=== PATIENT | female | born 1950 | race Caucasian/White ===

== ENCOUNTER 2016-10-11 13:03 | Inpatient (IN) | payer OTHER, MEDICARE ==
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
[2016-10-27] MEDS ORDERED: GABAPENTIN 600 MG TABLET PO ONE (05:30)
[2016-10-27] MEDS ORDERED: CLONIDINE HCL 0.1 MG/24 HR (7 DAY PATCH) TD SCH (05:30)
[2016-10-27] MEDS ORDERED: OXYCODONE HCL 10 MG TAB.SR PO ONE ×2 (05:30→06:26)
[2016-10-27] MEDS ORDERED: CEFAZOLIN SODIUM 2 GRAM PREMIX 100 ML IV PRN (05:30)
[2016-10-27] MEDS ORDERED: ONDANSETRON 4 MG/2ML 2 ML VIAL IV ONE (05:30)
[2016-10-27] MEDS ORDERED: CELECOXIB 200 MG CAPSULE PO ONE (05:30)
[2016-10-27] MEDS ORDERED: FAMOTIDINE 20 MG TABLET PO ONE (05:30)
[2016-10-27] MEDS ORDERED: TRAMADOL HCL 50 MG TABLET PO ONE (05:30)
[2016-10-27] MEDS ORDERED: LACTATED RINGERS 1,000 ML ONE (05:37)
[2016-10-27] MEDS ORDERED: IV START KIT ONE (05:37)
[2016-10-27] MEDS ORDERED: TRAMADOL HCL 50 MG TABLET ONE (06:26)
[2016-10-27] MEDS ORDERED: FAMOTIDINE 20 MG TABLET ONE (06:27)
[2016-10-27] MEDS ORDERED: ONDANSETRON 4 MG/2ML 2 ML VIAL ONE ×2 (06:27→09:36)
[2016-10-27] MEDS ORDERED: GABAPENTIN 600 MG TABLET ONE (06:27)
[2016-10-27] MEDS ORDERED: CELECOXIB 200 MG CAPSULE ONE (06:27)
[2016-10-27] MEDS ORDERED: CLONIDINE HCL 0.1 MG/24 HR (7 DAY PATCH) TD ONE (06:27)
[2016-10-27] MEDS ORDERED: MIDAZOLAM HCL 5 MG/5 ML VIAL ONE (06:39)
[2016-10-27] MEDS ORDERED: FENTANYL 5 ML ONE (06:39)
[2016-10-27] MEDS ORDERED: ROPIVACAINE 0.5% 30 ML VIAL ONE (06:58)
[2016-10-27] MEDS ORDERED: NERVE BLOCK PROCEDURAL TRAY 1 EACH ONE (06:58)
[2016-10-27] MEDS ORDERED: FLUSH IF PRN (07:40)
[2016-10-27] MEDS ORDERED: EPINEPHRINE IF PRN (07:40)
[2016-10-27] MEDS ORDERED: SODIUM CHLORIDE 0.9% IF PRN (07:40)
[2016-10-27] MEDS ORDERED: TRANEXAMIC ACID 1,000 MG in SODIUM CHLORIDE 0.9% 100 ML IV PRN (07:40)
[2016-10-27] MEDS ORDERED: BUPIVACAINE 0.25% (MDV) 20 ML in SODIUM CHLORIDE 0.9% FLUSH 20 ML IF PRN (07:40)
[2016-10-27] MEDS ORDERED: BUPIVACAINE 0.25% IF PRN (07:40)
[2016-10-27] MEDS ORDERED: POLYMYXIN B SULFATE 500,000 UNITS, BACITRACIN 25,000 UNITS in SODIUM CHLORIDE 3 L IRRIG... IR PRN (07:40)
[2016-10-27] MEDS ORDERED: SPINAL PROCEDURAL TRAY 1 EACH ONE (07:59)
[2016-10-27] MEDS ORDERED: DEXAMETHASONE SOD PHOS 4 MG/1 ML VIAL ONE ×2 (08:32)
[2016-10-27] MEDS ORDERED: ONDANSETRON 4 MG/2ML 2 ML VIAL IV PRN (09:09)
[2016-10-27] MEDS ORDERED: ATROPINE SULFATE 0.4 MG/1 ML VIAL IV PRN (09:09)
[2016-10-27] MEDS ORDERED: FENTANYL 100 MCG/2 ML VIAL IV PRN (09:09)
[2016-10-27] MEDS ORDERED: PROMETHAZINE HCL 25 MG/ML VIAL IM PRN ×2 (09:09→12:21)
[2016-10-27] MEDS ORDERED: NALOXONE HCL 0.4 MG/ML VIAL IV PRN (09:09)
[2016-10-27] MEDS ORDERED: LACTATED RINGERS 1,000 ML IV SCH (09:15)
[2016-10-27] MEDS ORDERED: SODIUM CHLORIDE 0.9% FLUSH 0 ML ONE ×3 (09:43→12:29)
[2016-10-27] MEDS ORDERED: PHENYLEPHRINE 10 MG/1 ML (1%) VIAL ONE (09:43)
[2016-10-27] MEDS ORDERED: ON-Q PUMP/ROPIVACAINE 0.2% 0 ML ONE (10:15)
--- NOTE | 2016-10-27 10:15 | PCMBPN ---
Brief Post Op Note: Date of Procedure: 10/27/16 Start Time: 0745 Preoperative Diagnosis: 1. Right Knee Osteoarthritis Postoperative Diagnosis: 1. Same Procedure: Right TKA Surgeon: West Ndiaye MD Assist:VICTORINA Tapia Anesthesia: Brennan Garcia CRNA Findings: See above Condition: Stable Complications: None IV Fluids: 2200 mLs of LR Urine Output: 125 mLs Estimated Blood Loss: 50 mLs Tourniquet Time: 28 minutes at 250mmHg Specimens: N/A Implants: Stoddard&Nephew: Size 5 PS Femoral Component Legion Oxinum, Size 3 Genesis2 Non-porous Tibial Plate, 9mm Legion PS XLPE Highflexion Articular Insert, 32mm Gensis2 Patella component. Drains: [N/A]
[2016-10-27] MEDS ORDERED: ON-Q PUMP/ROPIVACAINE 0.2% 450 ML ONE (10:33)
[2016-10-27] MEDS ORDERED: HYDROMORPHONE HCL 1 MG/ML SYRINGE ONE (10:41)
[2016-10-27] MEDS: HYDROMORPHONE HCL 1 MG/ML SYRINGE IV PRN ×2 (10:43→10:51)
[2016-10-27] MEDS: ON-Q PUMP/ROPIVACAINE 0.2% 450 ML in PREMIX BAG 1 EACH NB PRN (10:44)
--- NOTE | 2016-10-27 11:24 | RAD ---
Exam: Two-view right knee COMPARISON: 06/30/2016 INDICATION: Postop right knee FINDINGS: AP and crosstable lateral views of the right knee were obtained. There has been right total knee arthroplasty. Alignment is normal. No pericomponent fracture is identified. Skin renée are present. IMPRESSION: Expected postoperative appearance following right total knee arthroplasty.
[2016-10-27] MEDS ORDERED: KETOROLAC TROMETHAMINE 15 MG/ML VIAL IV PRN (11:29)
[2016-10-27] MEDS ORDERED: TRAZODONE HCL 50 MG TABLET PO PRN (11:29)
[2016-10-27] MEDS ORDERED: HYDROMORPHONE HCL 0.5 MG/0.5 ML SYRINGE IV PRN (11:29)
[2016-10-27] MEDS ORDERED: NALOXONE HCL 0.4 MG/ML VIAL ONE (11:59)
[2016-10-27] MEDS ORDERED: PUMP TUBING ONE (12:04)
[2016-10-27] MEDS: D5 1/2NS with 20 mEq KCL 1,000 ML IV SCH ×2 (12:06→20:49)
[2016-10-27] MEDS ORDERED: MEPERIDINE 50 MG/ML SYRINGE IM PRN (12:21)
[2016-10-27] MEDS ORDERED: METOCLOPRAMIDE HCL 5 MG/ML 2ML VIAL ONE ×2 (12:29)
[2016-10-27] MEDS ORDERED: EPHEDRINE SULFATE UD SYR 25 MG 25 MG/5 ML SYRINGE IV ONE (12:36)
[2016-10-27] MEDS ORDERED: PROPOFOL 0 ML IV ONE (12:48)
[2016-10-27] MEDS ORDERED: LIDOCAINE 2% (PRES FREE) 5 ML VIAL ONE ×2 (13:32)
[2016-10-27] MEDS ORDERED: EPINEPHRINE 1 MG/ML 1ML AMP ONE (13:32)
[2016-10-27] MEDS: ACETAMINOPHEN 500 MG TABLET PO SCH ×2 (14:44→18:40)
[2016-10-27] MEDS: CEFAZOLIN SODIUM 2 GRAM DUPLEX 2 G in Premix (D5W) 50 ml 1 EACH IV SCH (17:30)
[2016-10-27 18:39] VITALS: BMI 26.9
[2016-10-27] MEDS: OXYCODONE HCL 10 MG TAB.SR PO SCH (20:49)
[2016-10-27] MEDS: DOCUSATE SODIUM 100 MG CAPSULE PO SCH (20:49)
[2016-10-27] MEDS: ASCORBIC ACID 500 MG TABLET PO SCH (20:50)
[2016-10-28] MEDS: ACETAMINOPHEN 500 MG TABLET PO SCH ×4 (00:33→17:23)
[2016-10-28] MEDS: CEFAZOLIN SODIUM 2 GRAM DUPLEX 2 G in Premix (D5W) 50 ml 1 EACH IV SCH (00:33)
[2016-10-28] MEDS: D5 1/2NS with 20 mEq KCL 1,000 ML IV SCH ×3 (05:11→22:51)
[2016-10-28] MEDS ORDERED: REMOVE PATCH 1 EACH UNIT TD SCH (05:30)
[2016-10-28 07:10] LABS: HEMATOCRIT 31.7 % (37.0-47.0); MEAN CELL VOLUME 88.5 fl (81.0-99.0); MEAN CORPUSCULAR HEMOGLOBIN 27.9 pg (27.0-31.0); MEAN CORPUSCULAR HGB CONC 31.5 g/dl (33.0-37.0); RED CELL DISTRIBUTION WIDTH 13.2 % (11.5-14.5)
[2016-10-28] MEDS: LEVOTHYROXINE SODIUM 88 MCG TABLET PO SCH (07:19)
[2016-10-28 07:45] LABS: CALCIUM 7.9 mg/dL (8.6-10.3)
--- NOTE | 2016-10-28 08:21 | PDOC43 ---
- Subjective Findings: POD1 Right TKA Subjective: Reports Pain Tolerable, Denies Chest Pain, Denies Shortness of Breath - Objective Vital Signs Temperature 98.0 F 10/28/16 08:08 Pulse Rate 70 10/28/16 08:08 Respiratory Rate 20 10/28/16 08:08 Blood Pressure 108/66 10/28/16 08:08 O2 Saturation by Pulse Oximetry 94 10/28/16 08:08 Oxygen Delivery Method Room Air Oxygen Flow Rate 0 Laboratory 10/28/16 06:10 10/28/16 06:10 10/28/16 06:10 RBC 3.58 L MCHC 31.5 L Estimated GFR 100 H Calcium 7.9 L Active Medication Orders Category Date Time Status Acetaminophen [Tylenol] Med 10/27/16 11:29 Active 1,000 mg PO Q6H Ascorbic Acid [Vitamin C] Med 10/27/16 21:00 Active 500 mg PO BID Aspirin (Enteric Coated) [Ecotrin] Med 10/28/16 09:00 Active 325 mg PO DAILY Bisacodyl [Dulcolax] Med 10/30/16 10:16 Active 10 mg UT DAILY PRN Calcium Carbonate [Tums] Med 10/27/16 11:29 Active 1,000 - 2,000 mg PO Q2H PRN Calcium Citrate Med 10/28/16 09:00 Active 1,250 mg PO DAILY D5 1/2NS with 20 mEq KCL [D51/2NS with 20 mEq KCL] 1, Med 10/27/16 11:29 Active 000 ml IV 125 mls/hr Docusate Sodium [Colace] Med 10/27/16 21:00 Active 100 mg PO BID Hydromorphone HCl [Dilaudid] Med 10/27/16 11:29 Active 0.5 mg IV Q1H PRN Hydroxyzine Pamoate [Vistaril] Med 10/27/16 11:29 Active 25 - 50 mg PO Q4H PRN Ketorolac Tromethamine [Toradol] Med 10/27/16 11:29 Active 15 mg IV Q6H PRN Levothyroxine Sodium [Levothroid] Med 10/28/16 07:30 Active 88 mcg PO QAMAC Magnesium Hydroxide [Milk of Magnesia] Med 10/28/16 10:16 Active 30 ml PO DAILY PRN Meperidine [Demerol] Med 10/27/16 12:21 Active 50 mg IM Q2H PRN Multivitamins [One-A-Day] Med 10/28/16 09:00 Active 1 tab PO DAILY On-Q Pump/Ropivacaine 0.2% 450 ml Med 10/27/16 09:09 Active Premix Bag [Premix Fluid] 1 each NB Q50H Ondansetron 4 mg/2ml Vial [Zofran] Med 10/27/16 11:29 Active 4 - 6 mg IV Q6H PRN Oxycodone HCl [Roxicodone] Med 10/27/16 11:29 Active 5 - 10 mg PO Q4H PRN Oxycodone Sr [Oxycontin] Med 10/27/16 21:00 Active 10 mg PO Q12HR Promethazine HCl [Phenergan] Med 10/27/16 12:21 Active 25 mg IM Q4H PRN Raloxifene HCl [Evista] Med 10/28/16 09:00 Active 60 mg PO DAILY Remove Patch Med 10/28/16 10:16 Once 1 each TD X1 ONE Sodium Chloride 0.9% Flush [Normal Saline 10ml Flush] Med 10/27/16 11:29 Active 10 - 50 ml IV PRN PRN Sodium Chloride 0.9% Flush [Normal Saline 10ml Flush] Med 10/27/16 17:00 Active 10 ml IV Q8HR Tramadol HCl [Ultram] Med 10/27/16 11:29 Active 50 mg PO Q6H PRN Trazodone HCl [Desyrel] Med 10/27/16 11:29 Active 25 mg PO BEDTIME PRN Vitamin D Med 10/28/16 09:00 Active 400 interunits PO DAILY Intake and Output 10/26/16 10/27/16 10/28/16 23:59 23:59 23:59 Intake Total 3820 1389 Output Total 1550 Balance 2270 1389 General: Afebrile Lungs: Normal Air Movement Skin: Normal Color, Warm, Dry - Right Lower Extremity Incision: Dressing Clean/Dry/Intact, No Dressing Saturated Motor: Extensor Hallucis Longus: 5/5, Tibialis Anterior: 5/5, Gastrocnemius: 5/5 , Peroneals: 5/5 Gross Sensation to Light Touch: Present: Deep Peroneal Nerve, Superficial Peroneal Nerve - Problems (1) Status post total knee replacement, right Status: Acute - Additional Comments POD1 Right TKA. 1. Physical Therapy: WBAT with FWW, Mobilization 2. Pain Control: Multimodal pain control as needed. 3. DVT Prophylaxis: ASA 325mg, mobilization. 4. Disposition: Plan for discharge home Tuesday. 5. Medical Issues: No new medical problems.
[2016-10-28] MEDS ORDERED: CALCIUM CITRATE 250 MG TABLET PO SCH (09:00)
[2016-10-28] MEDS: RALOXIFENE HCL 60 MG TABLET PO SCH (09:32)
[2016-10-28] MEDS: CALCIUM CITRATE 250 MG TABLET PO SCH (09:32)
[2016-10-28] MEDS: ASCORBIC ACID 500 MG TABLET PO SCH (09:32)
[2016-10-28] MEDS: DOCUSATE SODIUM 100 MG CAPSULE PO SCH (09:32)
[2016-10-28] MEDS: ASPIRIN (ENTERIC COATED) 325 MG TABLET.EC PO SCH (09:32)
[2016-10-28] MEDS: MULTIVITAMINS 1 TAB TABLET PO SCH (09:32)
[2016-10-28] MEDS: VITAMIN D PO SCH (09:32)
[2016-10-28] MEDS: OXYCODONE HCL 10 MG TAB.SR PO SCH (09:32)
[2016-10-28] MEDS ORDERED: MAGNESIUM HYDROXIDE 30 ML UDCUP PO PRN (10:16)
[2016-10-28] MEDS ORDERED: REMOVE PATCH 1 EACH UNIT TD ONE (10:16)
[2016-10-28] MEDS: TRAMADOL HCL 50 MG TABLET PO PRN (11:32)
[2016-10-28] MEDS: ON-Q PUMP/ROPIVACAINE 0.2% 450 ML in PREMIX BAG 1 EACH NB PRN ×3 (12:00→22:00)
[2016-10-28] MEDS ORDERED: PANTOPRAZOLE 40 MG TABLET DR PO ONE (15:42)
[2016-10-28] MEDS ORDERED: PANTOPRAZOLE 40 MG TABLET DR PO PRN (15:43)
[2016-10-28] MEDS: CALCIUM CARBONATE 500 MG TAB.CHEW PO PRN (17:24)
[2016-10-28] MEDS: OXYCODONE HCL 5 MG TABLET PO PRN (19:42)
[2016-10-28] MEDS: ONDANSETRON 4 MG/2ML 2 ML VIAL IV PRN (21:36)
[2016-10-29] MEDS: DOCUSATE SODIUM 100 MG CAPSULE PO SCH ×2 (00:07→10:30)
[2016-10-29] MEDS: CALCIUM CARBONATE 500 MG TAB.CHEW PO PRN ×2 (00:08→11:58)
[2016-10-29] MEDS: HYDROXYZINE PAMOATE 25 MG CAPSULE PO PRN ×2 (00:08→07:20)
[2016-10-29] MEDS: OXYCODONE HCL 10 MG TAB.SR PO SCH ×2 (00:08→10:31)
[2016-10-29] MEDS: ACETAMINOPHEN 500 MG TABLET PO SCH ×5 (00:14→16:35)
[2016-10-29] MEDS: ASCORBIC ACID 500 MG TABLET PO SCH ×2 (00:14→10:31)
[2016-10-29] MEDS: OXYCODONE HCL 5 MG TABLET PO PRN ×3 (03:20→16:52)
[2016-10-29] MEDS: D5 1/2NS with 20 mEq KCL 1,000 ML IV SCH ×2 (05:29→11:38)
[2016-10-29] MEDS: TRAMADOL HCL 50 MG TABLET PO PRN ×2 (05:55→14:55)
[2016-10-29 06:22] LABS: HEMATOCRIT 30.1 % (37.0-47.0); HEMOGLOBIN 9.6 gm/l (12.0-16.0)
[2016-10-29] MEDS: LEVOTHYROXINE SODIUM 88 MCG TABLET PO SCH (07:14)
[2016-10-29] MEDS: ONDANSETRON 4 MG/2ML 2 ML VIAL IV PRN (07:39)
--- NOTE | 2016-10-29 08:09 | OP ---
Laura DAVID : 1950 [id number] DATE OF SURGERY: October 27, 2016 PREOPERATIVE DIAGNOSIS: Right knee osteoarthritis. POSTOPERATIVE DIAGNOSIS: Right knee osteoarthritis. PROCEDURE PERFORMED: RIGHT TOTAL KNEE ARTHROPLASTY. SURGEON: West Ndiaye M.D. SEED AND FERTILIZER SPECIALIST: Flynn Stoddard P.A.-C. SPECIMENS: No material was sent to the laboratory. ESTIMATED BLOOD LOSS: 50 mL. INTRAVENOUS FLUIDS: 2200 mL of crystalloid. URINE OUTPUT: 125 mL. TOURNIQUET TIME: 28 minutes at 300 mmHg. IMPLANTS: Stoddard and Nephew Legion size 5 posterior stabilized femur, size 3 tibial baseplate, 9 mm insert and a 32 mm patella. DRAINS: No drains. INDICATIONS: This is a 66-year-old female with history and physical exam and radiographic findings consistent with right knee osteoarthritis. The patient has undergone a course of nonoperative measures without adequate relief of their symptoms. They desire definitive management in the form of a total knee arthroplasty. Risks, benefits and alternatives were discussed at length with the patient and they have elected to proceed. Preoperative clearances were performed and the patient was scheduled for surgery at the first available convenience. DESCRIPTION OF PROCEDURE: The patient was identified in the preoperative holding area where they were marked with indelible marker by the operating surgeon. The patient underwent ultrasound guided adductor canal block by the anesthesia provider. Patient was then taken to the operating room where they underwent a spinal anesthetic and was positioned supine on the operating room table. All bony prominences were padded and a well padded pre-calibrated nonsterile tourniquet was placed on the right upper thigh. Patient received perioperative antibiotics. The patient was prepped and draped in the usual sterile fashion for surgery. An operative time out was performed and confirmed by all members of the operative team. The leg was elevated and exsanguinated using an Esmarch bandage and the tourniquet was inflated at 300 mmHg. A standard anterior approach to the knee was utilized. Dissection was carried down to the fascia overlying the quadriceps and patellar tendons. A medial peripatellar arthrotomy was created. The infrapatellar and suprapatellar fat pads were excised along with medial and lateral menisci and the ACL and PCL. At this point the tourniquet was deflated. Retractors were placed to protect the collateral ligaments and the patella was slid laterally. The Visionaire guide for the femur was brought onto the field and pinned in place. This was exchanged for our distal femoral cut block. We confirmed our resection levels and then made the resection with an oscillating saw. The knee was hyperflexed and the Tarlow retractor was placed to deliver the tibia from under the femur. The Visionaire guide for the tibia was placed. Alignment was double checked with a set of drop rods. The guide was pinned in place and then exchanged for the proximal tibial cut guide. The resection level was again confirmed and the proximal tibial resection was made with an oscillating saw and completed with an osteotome and the proximal tibial resection piece was excised from the knee. At this point the retractors were removed and the knee was taken into extension and our extension block was checked and found to be satisfactory with a 9 mm nani. We returned our attention to the femur, pinning the 4-in-[address] using the previously drilled pins from the Visionaire guide. We double checked our alignment here as well as our flexion space and we were satisfied with the position of the block. Anterior, posterior and chamfer cuts were made and all bony pieces were excised. The knee was taken into hyperflexion and posterior osteophytes were removed using an osteotome and a curette. Finally, the tibia was sized with a base plate, drilled and punched and then a trial tibia was placed. The box cut guide for the femur was pinned in place and our box cut for the posterior stabilized femoral component was made and then a trial femur was placed. The trial 6 mm insert was placed and the knee was taken through a range of motion. It was found to be stable in all planes and to have appropriate extension and flexion. The patella was everted and held with two towel clips. Its thickness was measured to 19 mm initially. It was resected back using a freehand technique to 14 mm thick and sized for a 32 mm patellar button. The knee was taken through a range of motion. The patella was found to track midline with a no hands technique. At this point all trial implants were removed from the knee. The posterior capsule was inspected and it was confirmed that there were no significant bleeders. Then knee was elevated and exsanguinated using an Esmarch bandage and the tourniquet was reinflated. Cement was mixed on the back table while we performed our first posterior capsular injection and then copiously irrigated the bony surfaces with sterile saline. Our final implants were cemented in place and all excess cement was removed from the knee. The knee was held in extension with a clamp on the patella while the cement dried. A final inspection was made of the knee after the cement was dry and the tourniquet was deflated. There were no significant bleeders and no residual cement or bony bodies within the knee. The knee was once again copiously irrigated with sterile saline and then a closure was performed using #0 Quill for the capsule, #2-0 Vicryl for the subcutaneous tissues and renée in the skin. A sterile dressing of Xeroform, fluffs, ABD's, web roll and an JOIE bandage was applied. The drapes were removed. The patient was awakened from anesthesia. Patient was then transferred to a stretcher and taken postoperatively to the post anesthesia care unit in stable condition. There were no observed intraoperative complications during this procedure. Job [id number] Cc: [place]anna Chowdhury
--- NOTE | 2016-10-29 09:05 | PDOC43 ---
- Subjective Findings: Doing OK this AM, nauseated. Pain controlled. No new complaints. Subjective: Reports Flatus, Reports Pain Tolerable, Reports Nausea, Reports Vomiting, Denies Chest Pain, Denies Shortness of Breath, Denies Fever - Objective Vital Signs Temperature 97.4 F 10/29/16 07:35 Pulse Rate 69 10/29/16 07:35 Respiratory Rate 20 10/29/16 07:58 Blood Pressure 111/60 10/29/16 07:35 O2 Saturation by Pulse Oximetry 94 10/29/16 07:35 Oxygen Delivery Method Room Air Oxygen Flow Rate 0 Laboratory 10/29/16 05:30 10/28/16 06:10 Active Medication Orders Category Date Time Status Acetaminophen [Tylenol] Med 10/27/16 11:29 Active 1,000 mg PO Q6H Ascorbic Acid [Vitamin C] Med 10/27/16 21:00 Active 500 mg PO BID Aspirin (Enteric Coated) [Ecotrin] Med 10/28/16 09:00 Active 325 mg PO DAILY Bisacodyl [Dulcolax] Med 10/30/16 10:16 Active 10 mg IA DAILY PRN Calcium Carbonate [Tums] Med 10/27/16 11:29 Active 1,000 - 2,000 mg PO Q2H PRN Calcium Citrate Med 10/28/16 09:00 Active 1,250 mg PO DAILY D5 1/2NS with 20 mEq KCL [D51/2NS with 20 mEq KCL] 1, Med 10/27/16 11:29 Active 000 ml IV 125 mls/hr Docusate Sodium [Colace] Med 10/27/16 21:00 Active 100 mg PO BID Hydromorphone HCl [Dilaudid] Med 10/27/16 11:29 Active 0.5 mg IV Q1H PRN Hydroxyzine Pamoate [Vistaril] Med 10/27/16 11:29 Active 25 - 50 mg PO Q4H PRN Levothyroxine Sodium [Levothroid] Med 10/28/16 07:30 Active 88 mcg PO QAMAC Magnesium Hydroxide [Milk of Magnesia] Med 10/28/16 10:16 Active 30 ml PO DAILY PRN Multivitamins [One-A-Day] Med 10/28/16 09:00 Active 1 tab PO DAILY On-Q Pump/Ropivacaine 0.2% 450 ml Med 10/27/16 09:09 Active Premix Bag [Premix Fluid] 1 each NB Q50H Ondansetron 4 mg/2ml Vial [Zofran] Med 10/27/16 11:29 Active 4 - 6 mg IV Q6H PRN Oxycodone HCl [Roxicodone] Med 10/27/16 11:29 Active 5 - 10 mg PO Q4H PRN Oxycodone Sr [Oxycontin] Med 10/27/16 21:00 Active 10 mg PO Q12HR Pantoprazole Sodium [Protonix] Med 10/28/16 15:43 Active 40 mg PO DAILY PRN Raloxifene HCl [Evista] Med 10/28/16 09:00 Active 60 mg PO DAILY Sodium Chloride 0.9% Flush [Normal Saline 10ml Flush] Med 10/27/16 11:29 Active 10 - 50 ml IV PRN PRN Sodium Chloride 0.9% Flush [Normal Saline 10ml Flush] Med 10/27/16 17:00 Active 10 ml IV Q8HR Tramadol HCl [Ultram] Med 10/27/16 11:29 Active 50 mg PO Q6H PRN Trazodone HCl [Desyrel] Med 10/27/16 11:29 Active 25 mg PO BEDTIME PRN Vitamin D Med 10/28/16 09:00 Active 400 interunits PO DAILY Intake and Output 10/27/16 10/28/16 10/29/16 23:59 23:59 23:59 Intake Total 3820 2469 650 Output Total 1550 750 800 Balance 2270 1719 -150 General: Afebrile, No Acute Distress HEENT: EOMI Lungs: Normal Air Movement Abdomen: Soft, No Tenderness Skin: Normal Color, Warm, Dry Neurological: Grossly Intact, Alert, Oriented x 4 - Right Lower Extremity Incision: Dressing Clean/Dry/Intact, Well Approximated, Jose Antonio Intact, No Drainage, No Erythema, No Rash, No Ecchymosis Motor: Extensor Hallucis Longus: 5/5, Tibialis Anterior: 5/5, Gastrocnemius: 5/5 , Peroneals: 5/5, Quadriceps: 4/5 Gross Sensation to Light Touch: Present: Deep Peroneal Nerve, Superficial Peroneal Nerve, Medial Plantar Nerve, Lateral Plantar Nerve, Sural Nerve, Saphenous Nerve Capillary Refill: < 3 Seconds - Problems (1) Status post total knee replacement, right Status: Acute - Additional Comments POD2 Right TKA. 1. Physical Therapy: WBAT with FWW, Mobilization 2. Pain Control: Multimodal pain control as needed. 3. DVT Prophylaxis: ASA 325mg, mobilization. 4. Disposition: Likely home today. 5. Medical Issues: Low BP this AM, will bolus 1 L NS and recheck. West Ndiaye MD
[2016-10-29] MEDS ORDERED: SODIUM CHLORIDE 0.9% 1,000 ML IV SCH (09:15)
[2016-10-29] MEDS: ON-Q PUMP/ROPIVACAINE 0.2% 450 ML in PREMIX BAG 1 EACH NB PRN (09:20)
[2016-10-29] MEDS: CALCIUM CITRATE 250 MG TABLET PO SCH (10:30)
[2016-10-29] MEDS: RALOXIFENE HCL 60 MG TABLET PO SCH (10:31)
[2016-10-29] MEDS: VITAMIN D PO SCH (10:31)
[2016-10-29] MEDS: MULTIVITAMINS 1 TAB TABLET PO SCH (10:31)
[2016-10-29] MEDS: ASPIRIN (ENTERIC COATED) 325 MG TABLET.EC PO SCH (10:31)
[2016-10-29] MEDS ORDERED: PROMETHAZINE HCL 25 MG SUP PR ONE (11:26)
[2016-10-29 15:48] VITALS: BP 128/68
--- NOTE | 2016-10-29 15:56 | PDOC5 ---
ADMIT DATE: 10/27/16 DISCHARGE DATE: 10/29/16 ADMISSION DIAGNOSES: R knee osteoarthritis PROCEDURES PERFORMED THIS HOSPITALIZATION: right total knee arthroplasty SURGEON:West Ndiaye MD CONSULTATIONS: PT/OT/Care Management BRIEF HISTORY:This is a 66 year old female patient with activity-limiting right knee osteoarthritis which has failed to respond adequately to a course of nonoperative measures. After a discussion of the risks, benefits, and alternatives of ongoing therapies, patient elected to proceed with right total knee arthroplasty. The patient underwent standard preoperative clearance and education, and presented to the hospital on the scheduled date for surgery. BRIEF HOSPITAL COURSE: Patient tolerated the procedure without complication and was admitted postoperatively for observation, pain control, and rehabilitation. Patient had an uncomplicated hospital course; see daily notes for details. On POD#2 patient met all criteria for discharge and was discharged home with family assistance. Follow-up appointments for outpatient Physical Therapy and Orthopedics were provided at the time of discharge. Patient restarted preoperative medications, and received prescriptions for postoperative pain medications, a stool softener, and DVT prophylaxis. West Ndiaye MD - Discharge Diagnosis (1) Status post total knee replacement, right Status: Acute - Discharge Plan Additional Instructions: PROCEDURE: Right total knee arthroplasty (replacement) 1.) Dressings: may remove dressings on POD#4 and shower normally, let water run over incision and pat dry, but do not submerge or scrub incision. Cover with clean dressing and then change dressing every 2 days until completely dry. 2.) Activity: may bear weight as tolerated with assistive device as needed, brace in place at all times for first 6 weeks. Outpatient PT as previously scheduled. Daily exercises as instructed by PT. 3.) Medications: a.) Oxycontin: long-acting pain medication taken morning and evening for 10 days, no refills b.) Tramadol: as-needed pain medication for mild to moderate breakthrough pain (call for refills 3-4 days before running out) c.) Oxycodone: as-needed pain medication for severe breakthrough pain (call for refills 3-4 days before running out) d.) Aspirin: blood thinner to reduce risk of clots, 325 mg taken daily for 30 days e.) Colace: stool softener to help prevent constipation, taken twice a day as long as you are on narcotics; if you have not had a bowel movement by Kamlesh , get biuv-eno-eeldihy Magnesium Citrate from [employer] or [employer], and use per instructions twice a day until constipation resolves. f.) Phenergan/Promethazine: 1 tab every 6 hours as needed for nausea 4.) Followup: November 08 at 1:00PM with my PA, Brian Stoddard at [facility]. Call our office to confirm appt time and location. 5.) Questions: call my office with any questions or concerns. Go to ED or call 911 for any acute changes in health status or emergencies. West Ndiaye MD Prescriptions: Promethazine HCl [Phenergan] 25 mg PO Q6H PRN #40 tab PRN Reason: Nausea Follow-Up: [facility] [Outside] - 11/01/16 10:00 am Flynn Stoddard PA [Physician [employer]] - 11/08/16 1:00 pm
[2016-10-30] MEDS ORDERED: BISACODYL 10 MG SUP PR PRN (10:16)
== END 2016-10-29 18:07 | disposition home or self-care (01) | DRG 470 ==
LOC: OR 10-27 05:28 → MS 10-27 11:51
PROVIDERS: ADMIT Orthopaedic Surgery; ATTEND Orthopaedic Surgery
PROC: 0SRC0J9 Replacement of Right Knee Joint with Synthetic Substitute, Cemented, Open Approach (ICD-10-PCS; principal; 2016-10-27)
DX: M17.11 Unilateral primary osteoarthritis, right knee (principal); R11.0 Nausea; R03.1 Nonspecific low blood-pressure reading; M81.0 Age-related osteoporosis without current pathological fracture; E07.9 Disorder of thyroid, unspecified; K21.9 Gastro-esophageal reflux disease without esophagitis; Z87.81 Personal history of (healed) traumatic fracture; Z88.5 Allergy status to narcotic agent